=== PATIENT | female | born 1975 | race Caucasian/White ===

== ENCOUNTER 2023-05-09 12:14 | Emergency (ER) | payer MEDICAID, OTHER ==
[~2023-05-09] VITALS: Ht 157.5 cm; Wt 65.3 kg
[2023-05-09 14:11] VITALS: BP 129/74; TEMP 98.5; O2SAT 98
== END 2023-05-09 14:11 | disposition home or self-care (01) ==
LOC: ER 12:14
DX: S90.32XA Contusion of left foot, initial encounter (principal); X58.XXXA Exposure to other specified factors, initial encounter; Y93.89 Activity, other specified; Y92.89 Other specified places as the place of occurrence of the external cause; Y99.8 Other external cause status
CPT/HCPCS: 73660; A4663